=== PATIENT | female | born 1965 | race Caucasian/White ===

== ENCOUNTER 2024-07-16 08:05 | Outpatient (CLI) | payer BC | END 2024-07-16 08:06 | disposition home or self-care (01) | LOC: CSHMAMMO 08:05 | PROVIDERS: ATTEND Obstetrics & Gynecology | DX: Z12.31 Encounter for screening mammogram for malignant neoplasm of breast (principal); Z80.3 Family history of malignant neoplasm of breast; Z91.89 Other specified personal risk factors, not elsewhere classified; Z98.82 Breast implant status; Z98.890 Other specified postprocedural states | CPT/HCPCS: 77063; 77067 ==